=== PATIENT | female | born 1995 ===

== ENCOUNTER 2016-08-10 19:53 | Emergency (ER) | payer SELFPAY ==
[2016-08-10 20:11] VITALS: BP 136/76; PULSE 88; RESP 16; TEMP 99.1; O2SAT 100
--- NOTE | 2016-08-10 20:34 | ED PDOC ---
HPI: Female Pain Time Seen by Provider: 08/10/16 20:15 Chief Complaint (Nursing): Female Genitourinary Chief Complaint (Provider): : vaginal spotting History Per: Patient History/Exam Limitations: no limitations Onset/Duration Of Symptoms: Days (2) Current Symptoms Are (Timing): Still Present Quality Of Discomfort: Cramping Additional History Per: Patient Additional Complaint(s): 21 y/o female, approx 6 weeks gestation, presents with intermittent vaginal spotting x 2 days. Associated pelvic cramping. Patient notes bleeding to be mixed with white/yellow discharge at times. Denies fever, nausea/vomiting, changes in bowel movements, dysuria, hematuria. Abnormal Vaginal Bleeding: Yes Last Menstral Period: end may : 2 Para: 1 Miscarriage: 0 Past Medical History Reviewed: Historical Data, Nursing Documentation, Vital Signs Vital Signs: Last Vital Signs Temp 99.1 F 08/10/16 20:08 Pulse 88 08/10/16 20:08 Resp 16 08/10/16 20:08 BP 136/76 08/10/16 20:08 Pulse Ox 100 08/10/16 20:08 - Medical History PMH: No Chronic Diseases - Surgical History Surgical History: No Surg Hx - Family History Family History: States: Unknown Family Hx - Living Arrangements Living Arrangements: With Family - Home Medications Home Medications: Ambulatory Orders Medication Instructions Recorded Nitrofurantoin Macrocrystals 100 mg PO BID #14 cap 08/10/16 [Macrobid] - Allergies Allergies/Adverse Reactions: Allergies Allergy/AdvReac Type Severity Reaction Status Date / Time No Known Allergies Allergy Verified 08/10/16 20:08 Review of Systems ROS Statement: Except As Marked, All Systems Reviewed And Found Negative Genitourinary Female: Positive for: Vaginal Discharge, Vaginal Bleeding, Pelvic Pain Physical Exam - Reviewed Nursing Documentation Reviewed: Yes Vital Signs Reviewed: Yes - Physical Exam Appears: Positive for: Well, Non-toxic, No Acute Distress Head Exam: Positive for: ATRAUMATIC, NORMAL INSPECTION, NORMOCEPHALIC Skin: Positive for: Normal Color Eye Exam: Positive for: Normal appearance ENT: Positive for: Normal ENT Inspection Cardiovascular/Chest: Positive for: Regular Rate, Rhythm Respiratory: Positive for: Normal Breath Sounds Gastrointestinal/Abdominal: Positive for: Bowel Sounds, Soft, Tenderness ( diffuse lower discomfort to palpation) Pelvic Exam: Positive for: External Exam Normal, No Cerv. Motion Tender, Other ( exam chaperoned by Edith cctv technician). Negative for: Active Bleeding, Discharge Back: Positive for: Normal Inspection Extremity: Positive for: Normal ROM Neurologic/Psych: Positive for: Alert, Oriented - Laboratory Results Result Diagrams: 08/10/16 20:44 08/10/16 20:44 Urine POC: Positive Urine dip results: Positive for: Leukocyte Esterase (small), Blood (trace) - ECG O2 Sat by Pulse Oximetry: 100 - Progress ED Course And Treament: labs, urine, ob tv u/s EXAM: US Uterus, Limited CLINICAL HISTORY: 21 years old, female; Pain; Other: Pelvic pain; Gestational age or lmp: Unknown ; ; Additional info: Pelvic pain, vaginal spotting: Approx 6 wks pregna TECHNIQUE: Real-time ultrasound of the maternal uterus (limited) with image documentation. COMPARISON: No relevant prior studies available. FINDINGS: Serum beta hCG is 54,971. A single intrauterine gestation is identified with a crown-rump length measuring 3.4 cm, corresponding to an approximate gestational age of 10 weeks and 2 days. cardiac activity is identified at a rate of 171 beats per minute. The right ovary is unremarkable in echogenicity and size measuring 2.6 x 1.4 x 1.9 cm. Dopplerable flow is identified. The left ovary is increased in size measuring 3.5 x 1.5 x 3.6 cm. A small focus of decreased echogenicity is present measuring 17 mm in greatest dimension. Dopplerable flow is identified within the left ovary. The cervix is closed. IMPRESSION: Single intrauterine gestation with an approximate gestational age of 10 weeks and 2 days. cardiac activity is identified. 17 mm left ovarian cyst. Patient educated on findings, discharged with rx Macrobid. Advised follow up Nuclear Radiologist 2-3 days. Return to ED for worsening/concerning symptoms. Disposition - Clinical Impression Clinical Impression: Vaginal bleeding in , UTI (urinary tract infection), Ovarian cyst - Patient ED Disposition Is Patient to be Admitted: No Counseled Patient/Family Regarding: Studies Performed, Diagnosis, Need For Followup, Rx Given - Disposition [facility] Disposition: Routine/Home Disposition Time: 23:08 Condition: IMPROVED Prescriptions: Nitrofurantoin Macrocrystals [Macrobid] 100 mg PO BID #14 cap Instructions: Threatened Miscarriage (ED), Urinary Tract Infection in Women (ED ), Ovarian Cyst (ED) Print Language: ENGLISH
[2016-08-10 20:54] LABS: BASO % 0.3 % (0.0-2.0); EOS # 0.1 K/uL (0.0-0.7); EOS % 1.4 % (0.0-4.0); HEMATOCRIT 33.6 % (34.0-47.0); LYMPH # 2.2 K/uL (1.0-4.3); LYMPH % 23.4 % (20.0-40.0); MEAN CELL VOLUME 82.4 fl (81.0-99.0); MEAN CORPUSCULAR HGB CONC 31.6 g/dL (33.0-37.0); MEAN PLATELET VOLUME 10.9 fl (7.2-11.7); MONO # 0.7 K/uL (0.0-0.8); MONO % 7.4 % (0.0-10.0); NEUT # 6.5 K/uL (1.8-7.0); NEUT % 67.5 % (50.0-75.0); NRBC % 0.1 % (0.0-0.0); RED CELL DISTRIBUTION WIDTH 13.9 % (11.5-14.5); WHITE BLOOD COUNT 9.6 K/uL (4.8-10.8)
[2016-08-10 21:09] LABS: ALB/GLOB RATIO 1.3 (1.0-2.1); ALKALINE PHOSPHATASE 54 U/L (38-126); ALT/SGPT 28 U/L (9-52); AST/SGOT 23 U/L (14-36); BILIRUBIN,TOTAL 0.1 mg/dl (0.2-1.3); BLOOD UREA NITROGEN 8 mg/dl (7-17); CALCIUM 9.1 mg/dL (8.4-10.2); CARBON DIOXIDE 24 mmol/L (22-30); CHLORIDE 102 mmol/L (98-107); GFR AFRICAN-AMERICAN > 60; GLUCOSE,RANDOM 89 mg/dL (65-105); POTASSIUM 3.7 MMOL/L (3.6-5.0); SODIUM 137 mmol/l (132-148); TOTAL PROTEIN 7.4 G/DL (6.3-8.2)
[2016-08-10 21:14] LABS: RBC URINE 6 /hpf (0-3); URINE BACTERIA RARE (<OCC); URINE BILIRUBIN NEGATIVE (NEGATIVE); URINE BLOOD NEGATIVE (NEGATIVE); URINE COLOR STRAW (YELLOW); URINE GLUCOSE (UA) NEG (Normal); URINE KETONE NEGATIVE (NEGATIVE); URINE LEUKOCYTE ESTERASE MOD Leu/uL (Negative); URINE PROTEIN NEGATIVE (NEGATIVE); URINE UROBILINOGEN 0.2-1.0 mg/dL (0.2-1.0); WBC URINE 5 /hpf (0-5)
--- NOTE | 2016-08-10 22:32 | US ---
EXAM: US Uterus, Limited CLINICAL HISTORY: 21 years old, female; Pain; Other: Pelvic pain; Gestational age or lmp: Unknown; ; Additional info: Pelvic pain, vaginal spotting: Approx 6 wks pregna TECHNIQUE: Real-time ultrasound of the maternal uterus (limited) with image documentation. COMPARISON: No relevant prior studies available. FINDINGS: Serum beta hCG is 54,971. A single intrauterine gestation is identified with a crown-rump length measuring 3.4 cm, corresponding to an approximate gestational age of 10 weeks and 2 days. cardiac activity is identified at a rate of 171 beats per minute. The right ovary is unremarkable in echogenicity and size measuring 2.6 x 1.4 x 1.9 cm. Dopplerable flow is identified. The left ovary is increased in size measuring 3.5 x 1.5 x 3.6 cm. A small focus of decreased echogenicity is present measuring 17 mm in greatest dimension. Dopplerable flow is identified within the left ovary. The cervix is closed. IMPRESSION: Single intrauterine gestation with an approximate gestational age of 10 weeks and 2 days. cardiac activity is identified. 17 mm left ovarian cyst.
== END 2016-08-10 23:21 | disposition home or self-care (01) ==
LOC: H.ER 19:53
DX: O20.0 Threatened abortion (principal); O23.40 Unspecified infection of urinary tract in pregnancy, unspecified trimester; Z3A.01 Less than 8 weeks gestation of pregnancy; R10.2 Pelvic and perineal pain; N83.202 Unspecified ovarian cyst, left side